=== PATIENT | male | born 1950 | race Caucasian/White ===

== ENCOUNTER 2017-07-18 15:00 | Inpatient (IN) | payer BC ==
[2017-08-01] MEDS ORDERED: CEFAZOLIN 2 Gram 2 GM/50 ML BAG IVPB ONE (06:00)
[2017-08-01] MEDS ORDERED: CELECOXIB 100 MG CAPSULE PO ONE (06:00)
[2017-08-01] MEDS ORDERED: MECLIZINE 25 MG TABLET PO ONE (06:00)
[2017-08-01] MEDS ORDERED: METOCLOPRAMIDE 10 MG TABLET PO ONE (06:00)
[2017-08-01] MEDS ORDERED: VANCOMYCIN HCL 1,000 MG in 0.9 % SODIUM CHLORIDE 250ML 250 ML IVPB ONE (06:00)
[2017-08-01] MEDS ORDERED: FAMOTIDINE 20MG TABLET PO ONE (06:00)
[2017-08-01 11:42] LABS: ABO GROUP O; ANTIBODY SCREEN NEGATIVE (NEGATIVE); RH TYPE POSITIVE
[2017-08-01] MEDS ORDERED: 0.9 % SODIUM CHLORIDE 10 ML VIAL IVP ONE (12:07)
[2017-08-01] MEDS ORDERED: BUPIVACAINE 0.5% W/EPI MPF 30 ML VIAL IVP ONE (12:07)
[2017-08-01] MEDS ORDERED: TRANEXAMIC ACID 1,000 MG/10 ML ML IV ONE ×2 (12:07→14:00)
[2017-08-01] MEDS ORDERED: MIDAZOLAM HCL 2MG/2ML VIAL IV ONE (14:00)
[2017-08-01] MEDS ORDERED: FENTANYL PF 100MCG/2ML VIAL IV ONE (14:00)
[2017-08-01] MEDS ORDERED: ATROPINE SULFATE 1 MG/ML VIAL IV ONE (14:00)
[2017-08-01] MEDS ORDERED: PROPOFOL 10 MG/ML VIAL IV ONE (14:00)
[2017-08-01] MEDS ORDERED: EPHEDRINE SULFATE 50 MG/ML ML IV ONE (14:00)
[2017-08-01] MEDS ORDERED: KETOROLAC 30 MG/ML VIAL IVP ONE (14:00)
[2017-08-01] MEDS ORDERED: HYDROCODONE/APAP 10/325 TABLET PO PRN ×2 (16:20)
[2017-08-01] MEDS ORDERED: HYDROMORPHONE HCL 1MG/ML **SYRINGE IM PRN (16:20)
[2017-08-01] MEDS ORDERED: ONDANSETRON HCL IV 4 MG/2 ML VIAL IVP PRN (16:20)
[2017-08-01] MEDS ORDERED: ZOLPIDEM TARTRATE 5 MG TABLET PO PRN (16:20)
[2017-08-01] MEDS ORDERED: KETOROLAC 30 MG/ML VIAL IVP PRN ×2 (16:20)
[2017-08-01] MEDS ORDERED: MAGNESIUM HYDROXIDE 30 ML UDC PO PRN (16:20)
[2017-08-01] MEDS ORDERED: NALOXONE 0.4 MG/1 ML VIAL IVP PRN (16:20)
[2017-08-01] MEDS ORDERED: TRAMADOL HCL 50 MG TABLET PO PRN (16:20)
[2017-08-01] MEDS ORDERED: ACETAMINOPHEN 325 MG TAB PO PRN (16:20)
[2017-08-01] MEDS ORDERED: AL HYDROX/MAG HYDROX 30ML UD PO PRN (16:20)
[2017-08-01] MEDS ORDERED: HYDROMORPHONE HCL 2 MG/ML VIAL IM PRN (16:20)
[2017-08-01] MEDS ORDERED: BISACODYL 10 MG SUPP RC PRN (16:20)
[2017-08-01] MEDS ORDERED: ACETAMINOPHEN W/ CODEINE 300MG/60MG TABLET PO PRN ×2 (16:20)
[2017-08-01] MEDS ORDERED: POTASSIUM CHLORIDE/D5-0.9%NACL 20 MEQ/1,000 ML BAG IV SCH (17:00)
[2017-08-01] MEDS: DIPHENHYDRAMINE HCL 25 MG CAPSULE PO PRN ×2 (18:24→23:46)
[2017-08-01] MEDS ORDERED: PATIENT OWN MED: SIMVASTATIN 20 MG PO SCH (22:00)
[2017-08-01] MEDS: DOCUSATE SODIUM 100 MG CAPSULE PO SCH (22:17)
[2017-08-01] MEDS: CEFAZOLIN 2 Gram 2 GM/50 ML BAG IVPB SCH (22:18)
[2017-08-02] MEDS: CEFAZOLIN 2 Gram 2 GM/50 ML BAG IVPB SCH (05:58)
[2017-08-02 06:57] LABS: HEMATOCRIT 38.4 % (42.0-52.0)
[2017-08-02] MEDS ORDERED: PATIENT OWN MED: LEVOTHYROXINE 75 MCG PO SCH (07:00)
[2017-08-02 07:11] LABS: BLOOD UREA NITROGEN 15 mg/dL (8-23); CREATININE 0.8 mg/dL (0.7-1.2); EST GLOMERULAR FILTRATION RATE > 60 mL/min; GLUCOSE,RANDOM 121 mg/dL (74-109)
[2017-08-02] MEDS ORDERED: RIVAROXABAN 10 MG TABLET PO SCH (10:00)
[2017-08-02] MEDS ORDERED: PATIENT OWN MED: LISINOPRIL 20 MG PO SCH (10:00)
[2017-08-02] MEDS ORDERED: FERROUS SULFATE 325 MG TAB PO SCH (10:00)
--- NOTE | 2017-08-02 11:07 | Rehab Evaluation ---
Patient Information - Patient Information Diagnosis: OA L hip s/p L ANA Ordered Treatment: PT Evaluate and Treat Status: Initial Evaluation Surgery: Yes (L ANA) Date of Surgery: 08/01/17 History: Detail (Pt experienced onset of proximal L LE pain after exercising in November, thought he strained a muscle. Pain persisted over 4 months, had ortho consult. Prepared for ANA by losing 68 pounds since March 2017.) Past Med/Nishant Hx Detail: Detail Past Medical/Surgical Hx: PAST MEDICAL/SURGICAL HISTORY Past Surgical History bilat total knees;appy; bilat cataract sx; rt eye sx("hole in middle of eye"); cardiac catheterization 2006; colonoscopy. PMH - Respiratory Hx Respiratory Disorders Yes Hx Sleep Apnea Yes Hx of CPAP Yes PMH - Cardiovascular Hx Cardiovascular Disorders Yes Hx Abnormal EKG Yes: bradycardia with block Hx Cardiac Catheterization Yes Hx Hypertension Yes: good control with Lisinopril Exercise Tolerance Good PMH - Neuro Hx Neurological Disorders No PMH - GI Hx Gastrointestinal Disorders Yes Hx Weight Loss/Weight Gain Yes: wt loss of 68# since March 2017 PMH - Hx Genitourinary Disorders No PMH - Endocrine Hx Endocrine Disorders Yes Hx Thyroid Disease Yes: underactive PMH - Musculoskeletal Hx Musculoskeletal Disorders Yes Hx Arthritis Yes PMH - Psych Hx Psychiatric Problems No PMH - Hematology/Oncology Hx Hematology/Oncology No Disorders Premorbid Status: Detail (Pt was ambulating w/cane or staff, up to 20,000 steps a day prior to surgery as part of his weight-loss program. He has two steps into his house and he was able to ascend by holding onto door frame. He was independent w/all ADLs but had difficulty donning/doffing socks and wore slip- on shoes for ease. Has raised toilet seat, walk-in shower. Familiar w/post- operative course after having both knees replaced 4 and 5 years ago.) Social History: Detail (Pt lives w/his who is retired, in a ranch style home w/a basement, two steps to get in/out. Single handrail on the basement stairs. He already has a plan for resuming his walking program.) Precautions: [place], Fall, Other (Total hip arthroplasty precautions for posterior approach: avoid hip flexion greater than 90 degrees, internal rotation , and adduction beyond midline.) - Time With Patient Total Time Spent With Patient (Min): 40 Treatment Procedures: Detail (PT Evaluation) Subjective Information - Subjective Information Per Patient (Pt reclined in bed, awake/alert, cooperative for therapy. He denies pain, states he has been up to the bathroom several times and has walked out into the [place] a few times already.) Objective Data - Pain Pain Present: No Pain Intensity: 0 Pain Scale Used: Numeric (1 - 10) - Mental Status Patient Orientation: Oriented x3 - Visual Perception Appears within normal limits for therapeutic activities - ROM Within normal limits, Other (Limited in L hip by total hip precautions) - Strength/Tone Not within normal limits (Grossly 4-/5 in L hip flexion, abduction, adduction, extension, 4+/5 L knee flexion/extension, L ankle df/pf; 5/5 in R LE) - Coordination Appears within normal limits for therapeutic activities - Bed Mobility Independent (Required VCs to follow L ANA precautions) - Transfers Independent (Independent w/sit/stand transfers to front-wheeled walker) - Balance Balance Sitting: Good Balance Standing: Good (Stood twice at toilet for urinating w/o unsteadiness.) - Sensation Intact - Gait Detail (Ambulated w/front-wheeled walker within room, bathroom, and out in hallway to [facility] and returned to room w/SBA; ascended/descended three steps in stairway with proper technique using handrail on R going down, CGA and verbal cuing. Total about 325 feet.) - Special Tests Yes (Reviewed ANA precautions for posterior approach, and reviewed HEP of ankle pumps, quadriceps isometrics, hamstring isometrics, gluteal sets, LAQ, hip abduction.) Therapy Assessment - Therapy Assessment Detail (Pt exhibits ROM, strength, and mobility impairments consistent w/post- operative condition. He is a good candidate for physical therapy.) Patient Education - Patient Education Teaching Topic: Disease Process, Equipment Use, Exercise/Activity, Precautions Response: Return Demonstration, Verbalize Understanding Teaching Method: Discussion, Demonstration Teaching Recipient: Patient Barriers To Learning: None Problem List - Problem List Physical Therapy Problem List: Detail (1. Pt requires CGA for ascending/ descending stairs.) Goals - Goals Physical Therapy Goals: 1. Pt will safely and independently ascend/descend stairs w/single handrail. Prognosis - Prognosis Good Plan - Plan Physical Therapy Plan: Pt will be seen later today for review of ANA precautions and gait training on stairs. Anticipate discharge this afternoon/ evening.
[2017-08-02] MEDS: DOCUSATE SODIUM 100 MG CAPSULE PO SCH (11:19)
--- NOTE | 2017-08-02 12:05 | Rehab Evaluation ---
Patient Information - Patient Information Diagnosis: OA L hip s/p L ANA Ordered Treatment: OT Evaluate and Treat Status: Initial Evaluation Surgery: Yes (L ANA) Date of Surgery: 08/01/17 History: Detail (Pt experienced onset of proximal L LE pain after exercising in November, thought he strained a muscle. Pain persisted over 4 months, had ortho consult. Prepared for ANA by losing 68 pounds since March 2017.) Past Medical/Surgical Hx: PAST MEDICAL/SURGICAL HISTORY Past Surgical History bilat total knees;appy; bilat cataract sx; rt eye sx("hole in middle of eye"); cardiac catheterization 2006; colonoscopy. PMH - Respiratory Hx Respiratory Disorders Yes Hx Sleep Apnea Yes Hx of CPAP Yes PMH - Cardiovascular Hx Cardiovascular Disorders Yes Hx Abnormal EKG Yes: bradycardia with block Hx Cardiac Catheterization Yes Hx Hypertension Yes: good control with Lisinopril Exercise Tolerance Good PMH - Neuro Hx Neurological Disorders No PMH - GI Hx Gastrointestinal Disorders Yes Hx Weight Loss/Weight Gain Yes: wt loss of 68# since March 2017 PMH - Hx Genitourinary Disorders No PMH - Endocrine Hx Endocrine Disorders Yes Hx Thyroid Disease Yes: underactive PMH - Musculoskeletal Hx Musculoskeletal Disorders Yes Hx Arthritis Yes PMH - Psych Hx Psychiatric Problems No PMH - Hematology/Oncology Hx Hematology/Oncology No Disorders Premorbid Status: Detail (Pt was ambulating w/cane or staff, up to 20,000 steps a day prior to surgery as part of his weight-loss program. He has two steps into his house and he was able to ascend by holding onto door frame. He was independent w/all ADLs but had difficulty donning/doffing socks and wore slip- on shoes for ease. His will be completing meal prep, laundry and home mgmt. He is responsible for yard work. Has raised toilet seat with grab bar and walk-in shower with grab bars. He usually stands to shower but has a shower bench if needed. Familiar w/post-operative course after having both knees replaced 4 and 5 years ago. He has a lift chair, 2 wheeled walker, cane and staff as well as a basin tender.) Social History: Detail (Pt lives w/his who is retired, in a ranch style home w/a basement, two steps to get in/out. Single handrail on the basement stairs. He already has a plan for resuming his walking program.) Precautions: [place], Fall, Other (Total hip arthroplasty precautions for posterior approach: avoid hip flexion greater than 90 degrees, internal rotation , and adduction beyond midline.) - Time With Patient Total Time Spent With Patient (Min): 40 Treatment Procedures: Detail (OT eval low complexity) Subjective Information - Subjective Information Per Patient Objective Data - Pain Pain Present: Yes (minimal throbbing pain) - Mental Status Patient Orientation: Oriented x3 - Visual Perception Appears within normal limits for therapeutic activities - ROM Within normal limits (Renard UE AROM WNL) - Strength/Tone Within normal limits ([place]ard UE MMT WNL) - Coordination Appears within normal limits for therapeutic activities - Bed Mobility Independent (Ind with supine to sit.) - Transfers Independent (Ind with sit to stand from EOB.) - Balance Balance Sitting: Good Balance Standing: Good - Sensation Intact - Gait Detail (Pt ambulating in the room with 2 wheeled walker Indly.) - ADL's/IADL's Detail (Reviewed total hip precautions, pt verbalized learning. Pt able to use basin tender and don shorts using total hip precautions. Pt reports he does not wear socks and he usually wears slip on shoes. Reviewed adaptive equipment that is available and pt reports he does not currently need any equipment at this time.) Therapy Assessment - Therapy Assessment Detail (Pt is safe and Ind with functional mobility needed for ADLs, Ind with dressing using basin tender and knowledgeable about total hip precautions.) Problem List - Problem List Physical Therapy Problem List: Detail (1. Pt requires CGA for ascending/ descending stairs.) Occupational Therapy Problem List: Detail (No current OT problems identified at this time.) Goals - Goals Physical Therapy Goals: 1. Pt will safely and independently ascend/descend stairs w/single handrail. Occupational Therapy Goals: No IP OT goals identified. Prognosis - Prognosis Good Plan - Plan Physical Therapy Plan: Pt will be seen later today for review of ANA precautions and gait training on stairs. Anticipate discharge this afternoon/ evening. Occupational Therapy Plan: No further IP OT needs identified at this time. Thank you for this referral.
--- NOTE | 2017-08-03 06:43 | Operative Note ---
DATE: 08/01/2017. PREOPERATIVE DIAGNOSIS: End-stage arthrosis of the left hip. POSTOPERATIVE DIAGNOSIS: End-stage arthrosis of the left hip. PROCEDURE: Cementless left total hip arthroplasty using [employer] components with a size 62, no-hole reflection cup; a 35-degree offset, 32-mm diameter highly crosslinked liner; a size 16 cementless [place] stem with a +4, 32 mm diameter Oxinium head. STAFF SURGEON: Gregory Darden M.D. ANESTHESIA: Spinal. PREPARATION: ChloraPrep. INDIVIDUAL CONSIDERATIONS: This man was morbidly obese with a body mass index approaching 40 percent. This made dissection, positioning, and exposure much more difficult. PROCEDURE: The patient was taken to the operating room and placed supine on the operating table. He had successful induction of a spinal anesthetic. He was then placed directly on his side, left side up, and his left leg and hip were prepped and draped in the usual fashion. The patient had a direct posterior approach to the hip. Sharp dissection was carried down through the skin and subcutaneous tissue. Small veins were coagulated with a Bovie. The tensor and gluteal fascia was opened along the entire length of the incision, and deep retractors were placed. Short external rotators were identified, piriformis fossa, and removed. This exposed the posterior capsule. A posterior capsulectomy was performed, and the hip was dislocated posteriorly. The patient had a deformed head with complete loss of cartilage and bone loss. A femoral neck cut was made just about a thumb-breath above the lesser trochanter using an oscillating saw. I now exposed the capsule , and a rib capsulectomy was performed. Ligamentum was removed with a Bovie. He had a large medial wall. I removed that initially with a 49-mm reamer and then reamed the introitus to 61 for a 62 cup. There was a decent bleeding cancellous bony bed. I then slightly centrally reamed a 60. I then impacted a size 62, no-hole reflection cup with solid cementless fixation in 40 degrees of abduction and 20 to 25 degrees of anteversion as verified by bony landmarks and the extra-articular alignment guide. There was solid cementless fixation. The center cap screw was placed. After irrigation, a 35-degree offset lining was placed with a 32-mm diameter head with the offset posteriorly and inferiorly. This gave an excellent, stable acetabular construct. This was packed off. The proximal femur was delivered into the wound. A box-cutting osteotome was used to remove proximal metaphyseal bone. Mid-stem reaming was done to a size 16. I started filling cortex to about 14 to 15. Broaching was done to 16. This had a good proximal fill. I then calcar reamed. Anteversion was at a natural angle which was about 25 to 30 degrees. With a +4 trial with a high offset, there was excellent stability. The broach was removed. Everything was thoroughly irrigated out with pulsatile Betadine and saline. A high offset, size 16, [place] stem was impacted into place with solid cementless fixation. I then again irrigated everything out to clear any visual or palpable debris. I dried the Smith taper and impacted a +4, 32-mm diameter Oxinium head and reduced the hip. I had solid stability, full anterior stability, and full extension and external rotation. I flexed the hip up to its pedunculus and internally rotated it, even up to 90, and it was still stable. The only way it could get out was actually to pull it out with a hook. After irrigation, the sciatic nerve was inspected and was found to be completely intact. Hemostasis was obtained with a Bovie. The tensor gluteal fascia was then closed with running #2 cryl, the subcutaneous was closed in layers of running 0 Quill, and the skin was closed with luciano. The patient had received 1.0 gm of tranexamic acid IV preoperatively. I placed 1.0 gm of tranexamic acid mixed with 30 cc of saline underneath the fascia. The skin and subcutaneous tissue were also infiltrated with 30 cc of 0.5 percent Marcaine with epinephrine. A sterile, bulky compressive Aquacel type dressing was applied. The patient tolerated the procedure well. Needle and sponge counts were correct. Estimated blood loss was 500 cc. There were no complications. cc: Meir Pedro M.D. STEFANIE
--- NOTE | 2017-08-03 17:01 | Discharge Summary ---
DATE OF DISCHARGE: 08/02/17 DATE OF ADMISSION: 08/01/17 DATE OF SURGERY: 08/01/17 HISTORY: Mr. Terry is a delightful 65-year-old male who presents with end- stage arthrosis of his left hip. He was admitted for left total hip arthroplasty. Postoperatively, he did extremely well. His hospital course was unremarkable. His discharge hemoglobin was 13. He did not require transfusion. He wasn't even taking anything for pain postoperatively and was walking independently. DISCHARGE INSTRUCTIONS: The plan is to discharge him home in the care of his family. Home PT and Visiting Nurse have been arranged. Sutures will be removed in two weeks. He will be maintained for Xarelto for DVT prophylaxis and he will follow-up in my office in four weeks. FINAL DIAGNOSIS/PRIMARY DIAGNOSIS: END-STAGE ARTHROSIS OF THE LEFT HIP. SECONDARY DIAGNOSES: NONE. OPERATIONS AND PROCEDURES: CEMENTLESS LEFT TOTAL HIP ARTHROPLASTY. cc: Dr. Sin Pedro JOB NUMBER: [id number] MTDD
== END 2017-08-02 12:35 | disposition home or self-care (01) | DRG 470 ==
LOC: MEDSURG 08-01 10:38
PROVIDERS: ADMIT Orthopaedic Surgery; ATTEND Orthopaedic Surgery
PROC: 0SRB04A Replacement of Left Hip Joint with Ceramic on Polyethylene Synthetic Substitute, Uncemented, Open Approach (ICD-10-PCS; principal; 2017-08-01 13:00)
DX: M16.12 Unilateral primary osteoarthritis, left hip (principal); I10 Essential (primary) hypertension; E03.9 Hypothyroidism, unspecified; E78.00 Pure hypercholesterolemia, unspecified
CPT/HCPCS: 80048; 85014; 85018; 86850; 86900; 86901; 97165; 99232; J0460; J1885; J7050